=== PATIENT | male | born 1950 | race Hispanic/Latino ===

== ENCOUNTER → 2023-03-11 | Emergency (ER) | payer MEDICARE ==
[~2023-03-11] VITALS: Ht 175.3 cm; Wt 91.6 kg
[~2023-03-11] MED LIST: ALBUTEROL 0.083% 2.5 MG/3 ML INH IH SCH; CALCIUM GLUC 1GM 1 GM in 0.9%NACL 100ML 100 ML IV ONE; CALCIUM GLUC 1GM/10ML VIAL ONE; DEXTROSE 50%-WATER 25 GM/50 ML VIAL IV ONE; DEXTROSE 50%-WATER 50 ML DISP.SYRIN IV ONE; INSULIN HUMULIN R 100 UNIT/ML 3ML IV ONE; KAYEXALATE 15GM/60ML RC SCH; LACTATED RINGERS 1000ML 1,000 ML IV ONE; PANTOPRAZOLE 40 MG/VIAL IVP ONE; SODIUM BICARB 50MEQ 50ML VIAL 50 ML ONE; SODIUM BICARB 8.4% 50ML SYRINGE IVP ONE
[2023-03-11 11:17] LABS: BASOPHILS # (AUTO) 0.03 K/uL (0.00-0.20); BASOPHILS % (AUTO) 0.2 % (0.0-5.0); HEMATOCRIT 49.3 % (42-54); IMMATURE GRANULOCYTE ABSOLUTE 0.41 K/uL (0-1); LYMPHOCYTES # (AUTO) 0.3 K/uL (1.0-4.8); LYMPHOCYTES % (AUTO) 1.7 % (21.0-51.0); MEAN CORPUSCULAR HEMOGLOBIN 30.5 pg (27.0-33.0); MEAN CORPUSCULAR HGB CONC 35.3 g/dL (32.0-36.0); MEAN CORPUSCULAR VOLUME 86.3 fL (79-99); MONOCYTES # (AUTO) 1.2 K/uL (0.1-1.0); MONOCYTES % (AUTO) 6.8 % (3.0-13.0); NEUTROPHILS # (AUTO) 16.2 K/uL (1.8-7.7); PLATELET COUNT (AUTO) 510 K/uL (130-400); RED BLOOD CELL COUNT(AUTO) 5.71 MIL/uL (4.50-6.20); RED CELL DISTRIBUTION WIDTH 11.9 % (11.0-15.5); WHITE BLOOD COUNT (AUTO) 18.2 K/uL (4.8-10.8)
[2023-03-11 11:29] LABS: ALBUMIN 3.5 g/dL (3.5-5.0); BILIRUBIN,TOTAL 0.5 mg/dL (0.2-1.0)
[2023-03-11 12:00] LABS: CREATININE 24.3 mg/dL (0.5-1.5); POTASSIUM 7.8 mmol/L (3.5-5.1)
[2023-03-11 12:19] LABS: APPEARANCE,URINE CLOUDY (CLEAR); BILIRUBIN,URINE NEGATIVE (NEGATIVE); COLOR,URINE RED (YELLOW); GLUCOSE, URINE (UA) NEGATIVE (NEGATIVE); KETONES,URINE NEGATIVE (NEGATIVE); LEUKOCYTE ESTERASE ,URINE TRACE Leu/uL (NEGATIVE); NITRATE,URINE NEGATIVE (NEGATIVE); OCCULT BLOOD,URINE LARGE (NEGATIVE); PROTEIN,URINE 30 mg/dL (NEGATIVE); UROBILINOGEN,URINE 0.2 mg/dL (0.2-1.0)
[2023-03-11 12:36] LABS: ADD UA MICROSCOPIC YES
[2023-03-11 12:40] LABS: BACTERIA,URINE Rare /HPF (None Seen); RBC,URINE TNTC /HPF (0-1); SQUAMOUS EPITHELIAL CELL,UR Rare /HPF (0-2)
[2023-03-11 13:07] LABS: BILIRUBIN,TOTAL 0.4 mg/dL (0.2-1.0)
[2023-03-11 13:14] LABS: CREATININE 23.7 mg/dL (0.5-1.5); POTASSIUM 7.5 mmol/L (3.5-5.1)
[2023-03-11 13:40] VITALS: PULSE 87; RESP 24
[2023-03-11 13:45] LABS: ABG BASE EXCESS -9.7 mmol/L (-2.0-3.0); ABG HCO3 12.4 mmol/L (21.0-28.0); ABG OXYGEN SATURATION 96.5 % (95.0-99.0); ABG PCO2 20 mmHg (35-48); ABG PH 7.402 (7.35-7.450); HHb 3.5; PO2, ARTERIAL BG 88.6 mmHg (83.0-108.0); VENT MODE, BG RA (ROOM AIR)
[2023-03-11 15:33] LABS: POTASSIUM 5.7 mmol/L (3.5-5.1)
[2023-03-11 16:29] VITALS: BP 126/90; PULSE 92; RESP 20; O2SAT 97
[2023-03-11 16:29] LABS: CREATININE 20.9 mg/dL (0.5-1.5)
== END ==
LOC: EDH 09:52
DX: N19 Unspecified kidney failure (principal); E87.6 Hypokalemia; N41.9 Inflammatory disease of prostate, unspecified
CPT/HCPCS: 99285; 82435; 82947; 84132; 84295; 80048; 80053 ×2; 82803; 85025; 85018; 87088; 83605; 82270; 81001; 36415; 74176; 96365; 96361; 96375; 93005; 36600; 94640; J3490; J7070; J0610 ×2; C9113; J1815

== ENCOUNTER 2023-06-17 07:15 | Day surgery (SDC) | payer MEDICARE ==
[2023-06-10 15:03] LABS: BASOPHILS # (AUTO) 0.05 K/uL (0.00-0.20); BASOPHILS % (AUTO) 0.7 % (0.0-5.0); EOSINOPHILS # (AUTO) 0.09 K/uL (0.00-0.70); EOSINOPHILS % (AUTO) 1.3 % (0.0-8.0); HEMATOCRIT 43.3 % (42-54); IMMATURE GRANULOCYTE ABSOLUTE 0.12 K/uL (0-1); LYMPHOCYTES # (AUTO) 1.8 K/uL (1.0-4.8); LYMPHOCYTES % (AUTO) 25.3 % (21.0-51.0); MEAN CORPUSCULAR HEMOGLOBIN 29.5 pg (27.0-33.0); MEAN CORPUSCULAR VOLUME 89.5 fL (79-99); MONOCYTES # (AUTO) 0.5 K/uL (0.1-1.0); MONOCYTES % (AUTO) 7.3 % (3.0-13.0); NEUTROPHILS # (AUTO) 4.4 K/uL (1.8-7.7); NEUTROPHILS % (AUTO) 63.7 % (40.0-77.0); PLATELET COUNT (AUTO) 243 K/uL (130-400); RED BLOOD CELL COUNT(AUTO) 4.84 MIL/uL (4.50-6.20); RED CELL DISTRIBUTION WIDTH 13.8 % (11.0-15.5)
[2023-06-10 15:08] LABS: APPEARANCE,URINE CLEAR (CLEAR); BILIRUBIN,URINE NEGATIVE (NEGATIVE); COLOR,URINE COLORLESS (YELLOW); GLUCOSE, URINE (UA) NEGATIVE (NEGATIVE); KETONES,URINE NEGATIVE (NEGATIVE); LEUKOCYTE ESTERASE ,URINE 75 Leu/uL (NEGATIVE); NITRATE,URINE 1+ (NEGATIVE); PROTEIN,URINE NEGATIVE (NEGATIVE); UROBILINOGEN,URINE 0.2 mg/dL (0.2-1.0)
[2023-06-10 15:12] LABS: ADD UA MICROSCOPIC YES
[2023-06-10 15:14] LABS: BACTERIA,URINE FEW /HPF (None Seen); RBC,URINE 0-1 /HPF (0-1)
[2023-06-10 15:19] LABS: CREATININE 0.8 mg/dL (0.5-1.5); POTASSIUM 4.8 mmol/L (3.5-5.1)
[2023-06-10 15:21] LABS: INR < 0.93 (0.85-1.15); PROTHROMBIN TIME 10.7 SEC (9.6-11.6)
[2023-06-10 15:22] LABS: PARTIAL THROMBOPLASTIN TIME 27.7 SEC (26.3-35.5)
[2023-06-10 15:23] VITALS: BP 187/97; PULSE 56; RESP 17
[~2023-06-17] VITALS: Ht 165.1 cm; Wt 70.1 kg
[2023-06-17] VITALS (18 sets, daily range): BP systolic 153–171; BP diastolic 68–88; PULSE 56–66; RESP 14–18
[~2023-06-17 07:15] MED LIST changes: -ALBUTEROL 0.083% 2.5 MG/3 ML INH IH SCH; -CALCIUM GLUC 1GM 1 GM in 0.9%NACL 100ML 100 ML IV ONE; -CALCIUM GLUC 1GM/10ML VIAL ONE; -DEXTROSE 50%-WATER 25 GM/50 ML VIAL IV ONE; -DEXTROSE 50%-WATER 50 ML DISP.SYRIN IV ONE; -INSULIN HUMULIN R 100 UNIT/ML 3ML IV ONE; -KAYEXALATE 15GM/60ML RC SCH; -LACTATED RINGERS 1000ML 1,000 ML IV ONE; -PANTOPRAZOLE 40 MG/VIAL IVP ONE; -SODIUM BICARB 50MEQ 50ML VIAL 50 ML ONE; -SODIUM BICARB 8.4% 50ML SYRINGE IVP ONE; +levaquin PO
[2023-06-17] MEDS ORDERED: LACTATED RINGERS 1000ML 1,000 ML IV ONE (07:41)
[2023-06-17] MEDS ORDERED: FAMOTIDINE 20MG VIAL IV ONE (07:53)
[2023-06-17] MEDS ORDERED: HYDROMORPHONE 1 MG INJ ONE (07:53)
[2023-06-17] MEDS ORDERED: PHENYLEPHRINE HCL 10 MG/ML 1ML VIAL IV ONE (07:55)
[2023-06-17] MEDS ORDERED: LIDOCAINE PF 100MG/5ML (2%) SYRINGE 5ML ONE (07:58)
[2023-06-17] MEDS ORDERED: PROPOFOL 10 MG/ML 20ML VIAL IV ONE (07:58)
[2023-06-17] MEDS ORDERED: FENTANYL CITRATE PF 50 MCG/1 ML 2ML VIAL ONE (07:58)
[2023-06-17] MEDS ORDERED: GLYCOPYRROLATE 1 MG/5 ML SYRINGE ONE (07:58)
[2023-06-17] MEDS ORDERED: ROCURONIUM 10MG/1ML SYR 10 MG/ML ML ONE ×2 (07:58→10:29)
[2023-06-17] MEDS: CEFTRIAXONE 1G VIAL ONE ×2 (08:15→08:55)
[2023-06-17] MEDS ORDERED: MIDAZOLAM HCL 1 MG/ML 2ML VIAL ONE (08:30)
[2023-06-17] MEDS ORDERED: ONDANSETRON 4MG INJ ONE (10:14)
[2023-06-17] MEDS ORDERED: NEOSTIGMINE 5MG/5ML SYR IV ONE (11:37)
[2023-06-17] MEDS ORDERED: HYDRALAZINE 20MG/ML VIAL ONE (12:16)
[2023-06-17] MEDS ORDERED: BACITRACIN 1 EACH PACKET TP ONE (14:05)
[2023-06-25 14:22] LABS: STONE COLOR SEE SEPARATE REPORT; STONE COMPOSITION SEE SEPARATE REPORT; STONE SIZE SEE SEPARATE REPORT; STONE WEIGHT SEE SEPARATE REPORT
== END 2023-06-17 14:40 | disposition home or self-care (01) ==
LOC: DAH 07:15
PROVIDERS: ATTEND Urology
DX: N40.1 Benign prostatic hyperplasia with lower urinary tract symptoms (principal); N41.1 Chronic prostatitis; N21.0 Calculus in bladder; R33.8 Other retention of urine; Z79.899 Other long term (current) drug therapy; Z79.01 Long term (current) use of anticoagulants; Z98.890 Other specified postprocedural states
CPT/HCPCS: 80048; 85025; 85610; 85730; 87077; 87088; 87186; 81001; 36415 ×2; 52648; 88305; 82360; 52234; A4663; J7120 ×2; A4346; A4354; J3490 ×2; J3010; J1170; J2710; J2001; J0360; J0696; J2250; J2704; J2405; J2371; A4358; A4930; A4215; A4223; A4222; A4221; A4600